=== PATIENT | male | born 1960 | race Caucasian/White ===

== ENCOUNTER 2024-01-15 09:36 | Emergency (ER) | payer OTHER, SELFPAY ==
[2024-01-15 09:40] VITALS: BP 117/57; PULSE 73; RESP 18; TEMP 36.6; O2SAT 98; BMI 30.3
--- NOTE | 2024-01-15 11:28 | PC.NURSE ---
Patient escorted to room and orientated to room and bathroom. Patient remains as patient states Sitting in the chair just makes me itch more. Patient educated telephone sterilizer light features and location.
[2024-01-15 11:31] VITALS: BP 128/60; PULSE 94; RESP 22; TEMP 36.6; O2SAT 98
--- NOTE | 2024-01-15 11:40 | ED.SKABFB ---
HPI - Skin/Abscess/Foreign Bdy <Kate Covarrubias PA-C - Last Filed: 01/15/24 19:31> General Chief complaint: Skin/Abscess/Foreign Body Stated complaint: Dermatitis Time Seen by Provider: 01/15/24 11:26 Source: patient Mode of arrival: Ambulatory Limitations: no limitations History of Present Illness HPI narrative: 63-year-old male with past medical history psoriasis presents to the ED for a skin flare. Patient states that he is on a regimen of Cosentyx for the psoriasis. Patient lives in [place], is here on vacation. Patient states that over the last month he has had a slowly escalating flare, worsened over the last 2 days. Patient complains of uncontrollable itching. Patient took some Benadryl yesterday with mild relief. Patient states that the Benadryl was not as effective since he did not take it early on during the flare. Patient denies signs of anaphylaxis including no throat tightening, angioedema or mucosal involvement. Patient was able to contact his edging supervisor in [place], who recommended a shot of Kenalog. Patient is scheduled to return home to [place] in 4 days. Related Data Allergies Allergy/AdvReac Type Severity Reaction Status Date / Time Sulfa (Sulfonamide Allergy Severe Anaphylaxis Verified 01/15/24 12:22 Antibiotics) aspirin Allergy Hives Verified 01/15/24 09:51 latex Allergy Hives Verified 01/15/24 09:51 Penicillins Allergy Hives Verified 01/15/24 09:51 Review of Systems <Kate Covarrubias PA-C - Last Filed: 01/15/24 19:31> Constitutional Constitutional: Denies chills, Denies fatigue, Denies fever(s), Denies frequent falls, Denies lethargy and Denies weakness Eyes Eyes: Denies change in vision, Denies eye discharge, Denies irritation and Denies loss of vision ENT Ears, Nose, Mouth, and Throat: Denies change in voice, Denies dizziness, Denies neck pain, Denies sore throat and Denies throat swelling Cardiovascular Cardiovascular: Denies chest pain, Denies irregular heart rhythm, Denies lightheadedness, Denies palpitations, Denies dyspnea, Denies dyspnea on exertion and Denies orthopnea Respiratory Respiratory: Denies cough, Denies dyspnea, Denies dyspnea on exertion and Denies wheezing Gastrointestinal Gastrointestinal: Denies abdominal pain, Denies change in bowel habits, Denies diarrhea, Denies nausea and Denies vomiting Musculoskeletal Musculoskeletal: Denies neck pain and Denies numbness Integumentary/Breasts Skin/Breast: Reports pruritus, Denies erythema, Reports rash and Denies wounds Comments: All-over psoriasis flare Neurologic Neurologic: Denies behavioral changes, Denies confusion, Denies dizziness, Denies frequent falls, Denies loss of vision, Denies numbness and Denies weakness Psychiatric Psychiatric: Denies anxiety, Denies behavioral changes, Denies confusion, Denies depression, Denies homicidal ideation and Denies suicidal ideation Endocrine Endocrine: Denies fatigue, Denies flushing and Denies palpitations Hematologic/Lymphatic Hematologic/Lymphatic: Denies easy bruising Allergic/Immunologic Allergic/Immunologic: Denies urticaria, Denies throat swelling and Denies wheezing Patient History <Kate Covarrubias PA-C - Last Filed: 01/15/24 19:31> Social History Smoking Status: Current some day smoker Smoking Status: Current some day smoker alcohol intake frequency: 3 or more drinks per day Alcohol type: beer and hard liquor Substance Use Type: does not use Exam <Kate Covarrubias PA-C - Last Filed: 01/15/24 19:31> Narrative Exam Narrative: Const General:?cooperative, healthy appearing and comfortable [facility] Head:?normal to inspection Ears:?hearing grossly normal bilaterally Nose:?external nose normal Face and sinus:?normal facial exam and sinuses nontender Mouth:?oral mucosae normal Throat:?posterior oropharynx normal; airway patent Eyes General:?appearance normal, both eyes and all related structures Neck Neck:?normal visual inspection and no lymphadenopathy noted Resp Effort & Inspection:?normal respiratory effort Auscultation:?clear to auscultation bilaterally Cardio Rate:?regular rate Rhythm:?regular rhythm Integumentary Generalized erythema, psoriatic plaque. No signs of overlying bacterial infection. Mucous membranes clear Neuro General:?patient alert, patient awake and patient oriented x3 Initial Vital Signs Initial Vital Signs: Vital Signs Temperature 97.9 F 01/15/24 09:40 Pulse Rate 73 01/15/24 09:40 Respiratory Rate 18 01/15/24 09:40 Blood Pressure 117/57 L 01/15/24 09:40 Pulse Oximetry 98 01/15/24 09:40 Oxygen Delivery Method Room Air 01/15/24 09:40 <Juanita Burton DO - Last Filed: 01/20/24 01:12> Initial Vital Signs Initial Vital Signs: Vital Signs Temperature 97.9 F 01/15/24 09:40 Pulse Rate 73 01/15/24 09:40 Respiratory Rate 18 01/15/24 09:40 Blood Pressure 117/57 L 01/15/24 09:40 Pulse Oximetry 98 01/15/24 09:40 Oxygen Delivery Method Room Air 01/15/24 09:40 Course <Kate Covarrubias PA-C - Last Filed: 01/15/24 19:31> Orders Ordered: Discontinued Medications Hydroxyzine HCl (Hydroxyzine 50 Mg/Ml Inj) 50 mg IM NOW ONE Stop: 01/15/24 12:31 Last Admin: 01/15/24 12:34 Dose: 50 mg Documented By: RB Triamcinolone (Triamcinolone 40 Mg/Ml Vial) 60 mg IM NOW ONE Stop: 01/15/24 12:18 Last Admin: 01/15/24 12:34 Dose: 60 mg Documented By: RB Vital Signs Vital signs: Vital Signs - 8 hr 01/15/24 11:31 01/15/24 13:40 Temperature 97.9 F Pulse Rate 94 H 89 Respiratory Rate 22 20 Blood Pressure 128/60 108/82 Pulse Oximetry 98 99 Oxygen Delivery Method Room Air Room Air <Juanita Burton DO - Last Filed: 01/20/24 01:12> Orders Ordered: Discontinued Medications Hydroxyzine HCl (Hydroxyzine 50 Mg/Ml Inj) 50 mg IM NOW ONE Stop: 01/15/24 12:31 Last Admin: 01/15/24 12:34 Dose: 50 mg Documented By: RB Triamcinolone (Triamcinolone 40 Mg/Ml Vial) 60 mg IM NOW ONE Stop: 01/15/24 12:18 Last Admin: 01/15/24 12:34 Dose: 60 mg Documented By: RB Vital Signs Vital signs: Vital Signs - 8 hr 01/15/24 11:31 01/15/24 13:40 Temperature 97.9 F Pulse Rate 94 H 89 Respiratory Rate 22 20 Blood Pressure 128/60 108/82 Pulse Oximetry 98 99 Oxygen Delivery Method Room Air Room Air MDM - Skin/Abscess/Foreign Bdy <Hyma Satish, PA-C - Last Filed: 01/15/24 19:31> MDM Narrative Medical decision making narrative: 63-year-old male with past medical history psoriasis presents to the ED for a skin flare. No signs of anaphylaxis. No signs of overlying bacterial infection. Patient's symptoms consistent with a psoriasis give Kenalog IM, hydroxyzine. Patient's edging supervisor was paged, still waiting to hear back. Patient agrees to follow-up with his edging supervisor in [place] as soon as he gets back home. ED return precautions were discussed with patient. He verbalized understanding. Patient's edging supervisor Dr. Dubois called back and confirmed that the Kenalog and hydroxyzine were appropriate for the patient's symptoms today. He does not recommend any other medications or treatments at this time, and will reach out to the patient for follow-up. Medical records reviewed: Yes Discharge Plan Departure Patient Disposition: Home Clinical Impression: Psoriasis Instructions: DI for Psoriasis Activity Restrictions/Additional Instructions: You were evaluated in the ED today for a psoriasis flare. You were given an injection of Kenalog and hydroxyzine for your symptoms. Please follow-up with your edging supervisor as soon as possible. Return to the ED if you have worsening symptoms, throat tightness, lip swelling, tongue swelling, trouble breathing, chest pain. Referrals: Miscellaneous,Doctor, MD [Primary Care Provider] - Stand Alone Forms: Patient Portal/API ED Sign-out <Juanita Burton DO - Last Filed: 01/20/24 01:12> Cosign ED Attending Amandaature Attestation: I was immediately available in the department for consultation.
[2024-01-15] MEDS: hydrOXYzine 50 MG/ML INJ IM (12:34)
[2024-01-15] MEDS: TRIAMCINOLONE 40 MG/ML VIAL 60 MG IM (12:34)
[2024-01-15 13:40] VITALS: BP 108/82; PULSE 89; RESP 20; O2SAT 99
== END 2024-01-15 13:42 | disposition home or self-care (01) ==
PROVIDERS: Emergency Provider Student in an Organized Health Care Education/Training Program
DX: L40.9 Psoriasis, unspecified (principal)
CPT/HCPCS: 96372; 99283; J3410